=== PATIENT | male | born 1990 | race Caucasian/White ===

== ENCOUNTER 2017-03-30 08:38 | Emergency (ER) | payer MEDICAID ==
[2017-03-30 08:46] VITALS: TEMP 97
[2017-03-30] MEDS ORDERED: SODIUM CHLORIDE 0.9% 1,000 ML IV STA (08:58)
[2017-03-30 09:26] LABS: Basophils % (A) 0 %; HDW 2.43
[2017-03-30 09:31] LABS: CH 33.5; CHCM 35.1; Eosinophils # (A) 0.1 k/uL (0-0.7); Eosinophils % (A) 1 %; HCT 55.9 % (39.0-53.0); HGB 18.4 gm/dL (13.0-17.5); Luc # (Auto) 0.06; Luc % (Auto) 1; Lymphocytes # (A) 2.2 k/uL (1.0-4.8); Lymphocytes % (A) 22 %; MCH 31.5 pg (25.0-35.0); MCHC 32.9 g/dL (31.0-37.0); MCV 95.9 fL (80.0-100.0); Monocytes # (A) 0.4 k/uL (0-1.0); Monocytes % (A) 4 %; Neutrophils # (A) 7.3 k/uL (1.3-7.7); Neutrophils % (A) 73 %; RBC 5.83 m/uL (4.30-5.90); RDW 14.1 % (11.5-15.5); WBC 9.9 k/uL (3.8-10.6); WBC (Perox) 10.83
[2017-03-30 09:33] LABS: Appearance,Urine Clear (Clear); Bilirubin,Urine Negative (Negative); Glucose,Urine (UA) Negative (Negative); Ketones,Urine Negative (Negative); Leukocyte Esterase,Urine Negative (Negative); Mucus,Urine Rare /hpf; Nitrite,Urine Negative (Negative); Particle Count 3036; Protein,Urine 1+ (Negative); RBC,Urine <1 /hpf (0-5); Specific Gravity,Urine 1.021 (1.001-1.035); UA Billing (MACRO vs. MICRO) MICRO; Urobilinogen,Urine <2.0 mg/dL (<2.0)
[2017-03-30 09:41] VITALS: RESP 16
[2017-03-30 09:41] LABS: ALT 81 U/L (21-72); AST 44 U/L (17-59); Alkaline Phosphatase 83 U/L (38-126); Anion Gap 13 mmol/L; Blood Urea Nitrogen 14 mg/dL (9-20); Calcium 9.7 mg/dL (8.4-10.2); Carbon Dioxide 26 mmol/L (22-30); Chloride 103 mmol/L (98-107); Glucose 145 mg/dL (74-99); Non-African American GFR(MDRD) >60 (>60 ml/min/1.73 sqM); Potassium 4.5 mmol/L (3.5-5.1); Sodium 142 mmol/L (137-145); Total Bilirubin 1.6 mg/dL (0.2-1.3)
--- NOTE | 2017-03-30 09:48 | ED ---
General Adult HPI - General Chief complaint: Recheck/Abnormal Lab/Rx Stated complaint: Allergic Reaction-cannot see, dizzy Time Seen by Provider: 03/30/17 08:51 Source: patient, RN notes reviewed Mode of arrival: ambulatory Limitations: no limitations - History of Present Illness Initial comments: 26-year-old male presents to the emergency Department chief complaint of feeling like his heart is racing. Patient states he took 2 OxyContin a new diet pill today and he was only supposed to take 1 and now he feels as if his heart is pounding. He just feels very anxious and nervous. Patient states these were the side effects. He was concerned because he just does not feel right. Patient denies any pain with this. Patient states sometimes his heart seems to be so hard he does have mild shortness of breath. Patient was concerned due to his symptoms so he thought that he should be evaluated. Patient denies any other symptoms at this time.Patient denies any recent fever, chills, chest pain, back pain, abdominal pain, nausea vomiting, numbness or tingling, dysuria or hematuria, constipation or diarrhea, headaches or visual changes, or any other current symptoms. - Related Data Home Medications Medication Instructions Recorded Confirmed Kayli Leanz 2 cap PO ONCE 03/30/17 03/30/17 diphenhydrAMINE [Benadryl] 50 mg PO ONCE PRN 03/30/17 03/30/17 Allergies Allergy/AdvReac Type Severity Reaction Status Date / Time No Known Allergies Allergy Verified 03/30/17 09:14 Review of Systems ROS Statement: Those systems with pertinent positive or pertinent negative responses have been documented in the HPI. ROS Other: All systems not noted in ROS Statement are negative. Past Medical History Additional Past Medical History / Comment(s): kidney stones History of Any Multi-Drug Resistant Organisms: None Reported Past Surgical History: No Surgical Hx Reported Past Psychological History: No Psychological Hx Reported Smoking Status: Current every day smoker Past Alcohol Use History: None Reported Past Drug Use History: None Reported General Exam - General Exam Comments Initial Comments: General: The patient is awake and alert, in no distress, and does not appear acutely ill. Eye: Pupils are equal, round and reactive to light, extra-ocular movements are intact; there is normal conjunctiva bilaterally. No signs of icterus. Ears, nose, mouth and throat: There are moist mucous membranes and no oral lesions. Neck: The neck is supple, there is no tenderness. Cardiovascular: There is a regular rate and rhythm. No murmur, rub or gallop is appreciated. Respiratory: Lungs are clear to auscultation, respirations are non-labored, breath sounds are equal. No wheezes, stridor, rales, or rhonchi. Gastrointestinal: Soft, non-distended, non-tender abdomen without masses or organomegaly noted. There is no rebound or guarding present. No CVA tenderness. Bowel sounds are unremarkable. Back: There is no tenderness to palpation in the midline. There is no obvious deformity. No rashes noted. Musculoskeletal: Normal ROM, no tenderness, There is no pedal edema. There is no calf tenderness or swelling. Sensation intact. Pulses equal bilaterally 2+. Neurological: CN II-XII intact, There are no obvious motor or sensory deficits. Coordination appears grossly intact. Speech is normal. Skin: Skin is warm and dry and no rashes or lesions are noted. Psychiatric: Cooperative, appropriate mood & affect, normal judgment. Limitations: no limitations Course Vital Signs 03/30/17 03/30/17 08:43 09:40 Temperature 97.0 F L Pulse Rate 103 H 88 Respiratory 20 16 Rate Blood Pressure 139/87 147/87 O2 Sat by Pulse 98 99 Oximetry EKG Findings - EKG Comments: EKG Findings:: normal sinus rhythm 94 bpm, normal axis, no atopy, no S-T depressions or elevations, Medical Decision Making - Medical Decision Making 26-year-old male presents emergency Department chief complaint of taking too much rock saline. At this time patient has been on a heart monitor with no issues. At this time EKG shows normal lipase. This time blood work was reviewed that does show some dehydration we did give the patient fluids. This time we did discuss not taking medication. We discussed follow-up return parameters. Patient stated the Michael on questions have been answered. Discharged home. - Lab Data Result diagrams: 03/30/17 09:09 03/30/17 09:09 Lab Results 03/30/17 03/30/17 03/30/17 Range/Units 09:09 09:09 09:09 WBC 9.9 (3.8-10.6) k/uL RBC 5.83 (4.30-5.90) m/uL Hgb 18.4 H (13.0-17.5) gm/dL Hct 55.9 H (39.0-53.0) % MCV 95.9 (80.0-100.0) fL MCH 31.5 (25.0-35.0) pg MCHC 32.9 (31.0-37.0) g/dL RDW 14.1 (11.5-15.5) % Plt Count 255 (150-450) k/uL Neutrophils % 73 % Lymphocytes % 22 % Monocytes % 4 % Eosinophils % 1 % Basophils % 0 % Neutrophils # 7.3 (1.3-7.7) k/uL Lymphocytes # 2.2 (1.0-4.8) k/uL Monocytes # 0.4 (0-1.0) k/uL Eosinophils # 0.1 (0-0.7) k/uL Basophils # 0.0 (0-0.2) k/uL Sodium 142 (137-145) mmol/L Potassium 4.5 (3.5-5.1) mmol/L Chloride 103 (98-107) mmol/L Carbon Dioxide 26 (22-30) mmol/L Anion Gap 13 mmol/L BUN 14 (9-20) mg/dL Creatinine 0.95 (0.66-1.25) mg/dL Est GFR (MDRD) Af Amer >60 (>60 ml/min/1.73 sqM) Est GFR (MDRD) Non-Af >60 (>60 ml/min/1.73 sqM) Glucose 145 H (74-99) mg/dL Calcium 9.7 (8.4-10.2) mg/dL Total Bilirubin 1.6 H (0.2-1.3) mg/dL AST 44 (17-59) U/L ALT 81 H (21-72) U/L Alkaline Phosphatase 83 (38-126) U/L Total Protein 8.0 (6.3-8.2) g/dL Albumin 5.0 (3.5-5.0) g/dL Urine Color Yellow Urine Appearance Clear (Clear) Urine pH 6.0 (5.0-8.0) Ur Specific [place] 1.021 (1.001-1.035) Urine Protein 1+ H (Negative) Urine Glucose (UA) Negative (Negative) Urine Ketones Negative (Negative) Urine Blood Negative (Negative) Urine Nitrite Negative (Negative) Urine Bilirubin Negative (Negative) Urine Urobilinogen <2.0 (<2.0) mg/dL Ur Leukocyte Esterase Negative (Negative) Urine RBC <1 (0-5) /hpf Urine Mucus Rare H (None) /hpf - Radiology Data Radiology results: report reviewed, image reviewed Disposition Clinical Impression: Reaction, drug, adverse Disposition: HOME SELF-CARE Condition: Stable Instructions: Adverse Drug Reaction (ED) Additional Instructions: Please use medication as discussed. Please follow up with family doctor if symptoms have not improved over the next two days. Please return to the emergency room if your symptoms increase or worsen or for any other concerns. Referrals: Anthony Rajput MD [Primary Care Provider] - 1-2 days Time of Disposition: 09:53
[2017-03-30 10:09] VITALS: BP 132/80; PULSE 81
== END 2017-03-30 10:09 | disposition home or self-care (01) ==
LOC: EC 08:38
DX: R00.2 Palpitations (principal); T40.2X5A Adverse effect of other opioids, initial encounter; R42 Dizziness and giddiness; R06.02 Shortness of breath; F17.200 Nicotine dependence, unspecified, uncomplicated; Z79.899 Other long term (current) drug therapy
CPT/HCPCS: 36415; 80053; 81001; 85025; 93005; 96360; 99284

== ENCOUNTER 2018-03-15 20:31 | Emergency (ER) | payer MEDICAID, OTHER ==
[2018-03-15 20:42] VITALS: BP 162/92; PULSE 110; RESP 18; TEMP 99
[2018-03-15] MEDS ORDERED: SODIUM CHLORIDE 0.9% 1,000 ML IV STA (22:05)
[2018-03-15 22:45] LABS: Appearance,Urine Clear (Clear); Bilirubin,Urine Negative (Negative); Blood,Urine Negative (Negative); Color,Urine Light Yellow; Glucose,Urine (UA) Negative (Negative); Ketones,Urine Negative (Negative); Leukocyte Esterase,Urine Negative (Negative); Nitrite,Urine Negative (Negative); Protein,Urine Negative (Negative); Urobilinogen,Urine <2.0 mg/dL (<2.0)
[2018-03-15 22:47] LABS: Basophils # (A) 0.1 k/uL (0-0.2); Basophils % (A) 0 %; Eosinophils # (A) 0.3 k/uL (0-0.7); Eosinophils % (A) 2 %; HCT 49.3 % (39.0-53.0); HGB 17.2 gm/dL (13.0-17.5); Lymphocytes # (A) 2.9 k/uL (1.0-4.8); Lymphocytes % (A) 21 %; MCH 31.1 pg (25.0-35.0); MCHC 34.9 g/dL (31.0-37.0); MCV 89.2 fL (80.0-100.0); Monocytes # (A) 0.6 k/uL (0-1.0); Monocytes % (A) 5 %; Neutrophils # (A) 9.9 k/uL (1.3-7.7); Neutrophils % (A) 71 %; Platelet Count 231 k/uL (150-450); RBC 5.53 m/uL (4.30-5.90); RDW 12.8 % (11.5-15.5); WBC 13.9 k/uL (3.8-10.6)
[2018-03-15 22:54] LABS: Sodium 138 mmol/L (137-145)
[2018-03-15 22:57] LABS: Albumin 4.4 g/dL (3.5-5.0); Anion Gap 10 mmol/L; Blood Urea Nitrogen 18 mg/dL (9-20); Calcium 9.7 mg/dL (8.4-10.2); Carbon Dioxide 24 mmol/L (22-30); Chloride 104 mmol/L (98-107); D-Dimer 0.19 mg/L FEU (<0.60); Glucose 109 mg/dL (74-99); Partial Thromboplastin Time 25.8 sec (22.0-30.0); Prothrombin Time 10.1 sec (9.0-12.0); Total Bilirubin 0.7 mg/dL (0.2-1.3); Total Protein 7.4 g/dL (6.3-8.2)
[2018-03-15 22:59] LABS: Creatine Kinase 209 U/L (55-170)
--- NOTE | 2018-03-15 23:06 | XR ---
EXAMINATION TYPE: XR chest 2V DATE OF EXAM: 03/15/2018 COMPARISON: 11/07/2014 HISTORY: Syncope TECHNIQUE: Frontal and lateral views of the chest are obtained. FINDINGS: Heart and mediastinum are normal. Lungs are clear. Diaphragm is normal. Bony thorax appear s normal. IMPRESSION: Normal chest. There is improved inspiration and clearing of right lower lobe pneumonia c ompared to old exam.
--- NOTE | 2018-03-15 23:08 | ED ---
General Adult HPI - General Chief complaint: Recheck/Abnormal Lab/Rx Stated complaint: Hypertension Time Seen by Provider: 03/15/18 21:34 Source: patient, EMS Mode of arrival: EMS Limitations: no limitations - History of Present Illness Initial comments: Phillip is a 27-year-old male who presents the emergency department for evaluation of generalized malaise and not feeling well. Patient reports that he was in his usual state of health throughout the day but this evening he began to feel unwell. He felt somewhat lightheaded, felt like he was about to pass out. He reports that he stood and his vision became black. He reports vague palpitations and shortness of breath. Patient reports that he has had episodes similar to this in the past where his vision blackens upon standing. However this was worse than usual. Patient reports that he was home alone at the time so he decided to call 911 for transfer to the hospital. significant other arrived at bedside. She reports that she was out of the home spinning evening with her female friends when she received a call from Phillip stating that he felt like he was going to pass out so he called 911. She reports that he is otherwise healthy and confirms that he doesn't have any cardiopulmonary history or any history of drug or alcohol abuse. - Related Data Home Medications Medication Instructions Recorded Confirmed Acetaminophen Tab [Tylenol Tab] 650 mg PO Q4H PRN 03/15/18 03/15/18 Allergies Allergy/AdvReac Type Severity Reaction Status Date / Time No Known Allergies Allergy Verified 03/15/18 20:50 Review of Systems ROS Statement: Those systems with pertinent positive or pertinent negative responses have been documented in the HPI. ROS Other: All systems not noted in ROS Statement are negative. Past Medical History Additional Past Medical History / Comment(s): kidney stones History of Any Multi-Drug Resistant Organisms: None Reported Past Surgical History: No Surgical Hx Reported Past Psychological History: No Psychological Hx Reported Smoking Status: Current every day smoker Past Alcohol Use History: None Reported Past Drug Use History: None Reported General Exam - General Exam Comments Initial Comments: Physical Exam GENERAL: Patient is resting in bed, eyes closed, appears to be in no acute distress. Patient is well-developed and well-nourished. Patient is nontoxic and well- hydrated and is in no distress. HENT: Normocephalic, Atraumatic. EYES: PERRL, EOMI PULMONARY: Unlabored respirations. No audible rales rhonchi or wheezing was noted. CARDIOVASCULAR: There is a regular rate and rhythm without any murmurs gallops or rubs. ABDOMEN: Soft and nontender with normal bowel sounds. SKIN: Skin is clear with no lesions or rashes and otherwise unremarkable. : Deferred NEUROLOGIC: Patient is alert and oriented x3. Moving all extremities spontaneously MUSCULOSKELETAL: Normal extremities with adequate strength and full range of motion. No lower extremity swelling or edema. No calf tenderness. PSYCHIATRIC: Normal psychiatric evaluation. Limitations: no limitations Limitations: no limitations Course Vital Signs 03/15/18 20:38 Temperature 99.0 F Pulse Rate 110 H Respiratory 18 Rate Blood Pressure 162/92 O2 Sat by Pulse 97 Oximetry EKG Findings - EKG Comments: EKG Findings:: EKG obtained at 10:13 PM, rate is 102, rhythm is sinus, there is normal axis, normal intervals, LA 142, QRS 80, QTC 435. There is no acute ST elevations or depressions no evidence of acute ischemia or infarction or arrhythmia. Medical Decision Making - Medical Decision Making The patient was seen and evaluated, history is obtained from the patient Patient reports subjective lightheadedness and feeling like he was about to pass out. Patient reports he does not feel well. He is very vague. states that he stealing confused. Not very cooperative with exam or evaluation laying with his eyes closed. 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 When I engaged the patient in conversation about recent professional MMA fight the patient became much more awake and interactive. We're able to maintain a five-minute conversation about controversy regarding recent fights that occurred over the previous weekend. After witnessing this conversation the patient's significant other at bedside stated "wow it seems [id number] better now" at which time the patient then closed his eyes and curled up in bed stating that he still didn't feel right After observing the patient and significant other at bedside I do feel there may be secondary gain motivation for the patient coming to the ER. His complaints are very vague and he cannot elaborate on them. When asked specifics about his complaints he repeatedly states that he doesn't know. However I will do a full workup including labs and EKG. EKG was unremarkable Labs with mild leukocytosis no other abnormalities Results were discussed with the patient reports feeling much better after IV fluids. At this time the patient is agreeable to plan for discharge home. I offered the patient and his significant other a work note as they were in the ER very late tonight. 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 All questions pertaining care were answered best my ability patient was discharged home in stable condition. - Lab Data Result diagrams: 03/15/18 22:20 03/15/18 22:20 Lab Results 03/15/18 03/15/18 03/15/18 Range/Units 22:00 22:20 22:20 WBC 13.9 H (3.8-10.6) k/uL RBC 5.53 (4.30-5.90) m/uL Hgb 17.2 (13.0-17.5) gm/dL Hct 49.3 (39.0-53.0) % MCV 89.2 (80.0-100.0) fL MCH 31.1 (25.0-35.0) pg MCHC 34.9 (31.0-37.0) g/dL RDW 12.8 (11.5-15.5) % Plt Count 231 (150-450) k/uL Neutrophils % 71 % Lymphocytes % 21 % Monocytes % 5 % Eosinophils % 2 % Basophils % 0 % Neutrophils # 9.9 H (1.3-7.7) k/uL Lymphocytes # 2.9 (1.0-4.8) k/uL Monocytes # 0.6 (0-1.0) k/uL Eosinophils # 0.3 (0-0.7) k/uL Basophils # 0.1 (0-0.2) k/uL PT (9.0-12.0) sec INR (<1.2) APTT (22.0-30.0) sec D-Dimer (<0.60) mg/L FEU Sodium (137-145) mmol/L Potassium (3.5-5.1) mmol/L Chloride (98-107) mmol/L Carbon Dioxide (22-30) mmol/L Anion Gap mmol/L BUN (9-20) mg/dL Creatinine (0.66-1.25) mg/dL Est GFR (CKD-EPI)AfAm (>60 ml/min/1.73 sqM) Est GFR (CKD-EPI)NonAf (>60 ml/min/1.73 sqM) Glucose (74-99) mg/dL Calcium (8.4-10.2) mg/dL Total Bilirubin (0.2-1.3) mg/dL AST (17-59) U/L ALT (21-72) U/L Alkaline Phosphatase (38-126) U/L Total Creatine Kinase 209 H (55-170) U/L CK-MB (CK-2) 1.1 (0.0-2.4) ng/mL CK-MB (CK-2) Rel Index 0.5 Troponin I <0.012 (0.000-0.034) ng/mL Total Protein (6.3-8.2) g/dL Albumin (3.5-5.0) g/dL Urine Color Light Yellow Urine Appearance Clear (Clear) Urine pH 6.0 (5.0-8.0) Ur Specific [place] 1.010 (1.001-1.035) Urine Protein Negative (Negative) Urine Glucose (UA) Negative (Negative) Urine Ketones Negative (Negative) Urine Blood Negative (Negative) Urine Nitrite Negative (Negative) Urine Bilirubin Negative (Negative) Urine Urobilinogen <2.0 (<2.0) mg/dL Ur Leukocyte Esterase Negative (Negative) 03/15/18 03/15/18 Range/Units 22:20 22:20 WBC (3.8-10.6) k/uL RBC (4.30-5.90) m/uL Hgb (13.0-17.5) gm/dL Hct (39.0-53.0) % MCV (80.0-100.0) fL MCH (25.0-35.0) pg MCHC (31.0-37.0) g/dL RDW (11.5-15.5) % Plt Count (150-450) k/uL Neutrophils % % Lymphocytes % % Monocytes % % Eosinophils % % Basophils % % Neutrophils # (1.3-7.7) k/uL Lymphocytes # (1.0-4.8) k/uL Monocytes # (0-1.0) k/uL Eosinophils # (0-0.7) k/uL Basophils # (0-0.2) k/uL PT 10.1 (9.0-12.0) sec INR 1.0 (<1.2) APTT 25.8 (22.0-30.0) sec D-Dimer 0.19 (<0.60) mg/L FEU Sodium 138 (137-145) mmol/L Potassium 4.6 (3.5-5.1) mmol/L Chloride 104 (98-107) mmol/L Carbon Dioxide 24 (22-30) mmol/L Anion Gap 10 mmol/L BUN 18 (9-20) mg/dL Creatinine 0.82 (0.66-1.25) mg/dL Est GFR (CKD-EPI)AfAm >90 (>60 ml/min/1.73 sqM) Est GFR (CKD-EPI)NonAf >90 (>60 ml/min/1.73 sqM) Glucose 109 H (74-99) mg/dL Calcium 9.7 (8.4-10.2) mg/dL Total Bilirubin 0.7 (0.2-1.3) mg/dL AST 52 (17-59) U/L ALT 110 H (21-72) U/L Alkaline Phosphatase 60 (38-126) U/L Total Creatine Kinase (55-170) U/L CK-MB (CK-2) (0.0-2.4) ng/mL CK-MB (CK-2) Rel Index Troponin I (0.000-0.034) ng/mL Total Protein 7.4 (6.3-8.2) g/dL Albumin 4.4 (3.5-5.0) g/dL Urine Color Urine Appearance (Clear) Urine pH (5.0-8.0) Ur Specific [place] (1.001-1.035) Urine Protein (Negative) Urine Glucose (UA) (Negative) Urine Ketones (Negative) Urine Blood (Negative) Urine Nitrite (Negative) Urine Bilirubin (Negative) Urine Urobilinogen (<2.0) mg/dL Ur Leukocyte Esterase (Negative) Disposition Clinical Impression: Near syncope, Hypertension, Tobacco abuse Disposition: HOME SELF-CARE Condition: Good Instructions: Heart Healthy Diet (ED), Syncope (DC), Hypertension (ED), Lightheadedness (ED) Is patient prescribed a controlled substance at d/c from ED?: No Referrals: None,Stated [Primary Care Provider] - 1-2 days
[2018-03-15 23:11] LABS: Creatine Kinase MB 1.1 ng/mL (0.0-2.4); Troponin I <0.012 ng/mL (0.000-0.034)
[2018-03-15 23:12] LABS: ALT 110 U/L (21-72); AST 52 U/L (17-59); Alkaline Phosphatase 60 U/L (38-126); Potassium 4.6 mmol/L (3.5-5.1)
--- NOTE | 2018-03-16 07:19 | CDI ---
Documentation Clarification OP Dear Danielle Sesay P, DO Please do addendum to ED report that provides Need ER H &P,Physical Exam Thank you, Riccardo Patrick Suspect Artist If you have any questions, please contact Poultry Hatchery Supervisor at [phone] [facility]
== END 2018-03-15 23:55 | disposition home or self-care (01) ==
LOC: EC 20:31
DX: I10 Essential (primary) hypertension (principal); R55 Syncope and collapse; Z72.0 Tobacco use; D72.829 Elevated white blood cell count, unspecified
CPT/HCPCS: 36415; 71046; 80053; 81003; 82550; 82553; 84484; 85025; 85379; 85610; 85730; 96360; 99284

== ENCOUNTER 2020-01-11 06:35 | Emergency (ER) | payer OTHER ==
[2020-01-11] MEDS ORDERED: LORazepam 2 MG/ML INJ IV STA (06:38)
[2020-01-11] MEDS ORDERED: SODIUM CHLORIDE 0.9% 500 ML 500 ML IV ONE (06:38)
[2020-01-11 06:40] VITALS: TEMP 97.8
--- NOTE | 2020-01-11 06:43 | ED ---
Anxiety HPI - General Stated Complaint: Anxiety Time Seen by Provider: 01/11/20 06:37 - History of Present Illness Initial Comments: 29yo male presenting for anxiety, patient states that this morning he woke up and he felt like his arm fell from the ceiling, Denies pain, numbness, has difficulty describing the symptoms. Patient states it felt like he slelpt on it wrong. He states he then became very anxious, which has happened in the past as he struggles with anxiety and staes he has been seen here in the past for it. He states he felt "out of body" began to panic. He states that he felt like his thoughts were a "million miles a minute". He states the took his pulse at that time and felt it pounding. Patient states he felt like he was going to in that moment, became lightheaded, denied sensation that room was spinning and called EMS. Pt denies SOB, chest pain, nausea, vomiting, abdominal or back pain Denies headache, dizziness, vision loss. Denies weakness of UE or LE. Patient denies loss of sensation of the UE or LE. Denies hx of cancer, hemoptysis, leg swelling recent surgeries or injuries, denies exogenous hormone use, personal or family history of DVT/PE/AK. Patient has no additional complaints. He appears nontoxic, on arrival. BP elevated. - Related Data Home Medications: Home Medications Medication Instructions Recorded Confirmed No Known Home Medications 01/11/20 01/11/20 Allergies/Adverse Reactions: Allergies Allergy/AdvReac Type Severity Reaction Status Date / Time No Known Allergies Allergy Verified 01/11/20 07:20 Review of Systems ROS Statement: Those systems with pertinent positive or pertinent negative responses have been documented in the HPI. ROS Other: All systems not noted in ROS Statement are negative. Past Medical History Additional Past Medical History / Comment(s): kidney stones History of Any Multi-Drug Resistant Organisms: None Reported Past Surgical History: No Surgical Hx Reported Past Psychological History: No Psychological Hx Reported Past Alcohol Use History: None Reported Past Drug Use History: None Reported General Exam - General Exam Comments Initial Comments: General: The patient is awake and alert, in no distress Eye: +3 mm pupils are equal, round and reactive to light, extra-ocular movements are intact. No nystagmus. There is normal conjunctiva bilaterally. No signs of icterus. Ears, nose, mouth and throat: There are moist mucous membranes and no oral lesions. Neck: The neck is supple, there is no tenderness or JVD. Cardiovascular: There is a regular rate and rhythm. No murmur, rub or gallop is appreciated. Respiratory: Lungs are clear to auscultation, respirations are non-labored, breath sounds are equal. No wheezes, stridor, rales, or rhonchi. Gastrointestinal: Soft, non-distended, non-tender abdomen without masses or organomegaly noted. There is no rebound or guarding present Musculoskeletal: Normal ROM, no tenderness. Strength 5/5. Sensation intact. Radial pulses equal bilaterally 2+. Neurological: A&O x 3. CN II-XII intact grossly, There are no obvious motor or sensory deficits. Coordination appears grossly intact. Speech is normal. Skin: Skin is warm and dry and no rashes or lesions are noted. NO LE edema. Psychiatric: Cooperative, appropriate mood & affect, normal judgment. Course Vital Signs 01/11/20 01/11/20 01/11/20 06:37 07:36 07:49 Temperature 97.8 F 97.8 F Pulse Rate 96 93 93 Respiratory 16 18 18 Rate Blood Pressure 145/97 125/76 125/76 O2 Sat by Pulse 97 97 97 Oximetry Medical Decision Making - Medical Decision Making 29-year-old male presented for chief complaint of anxiety. Patient states he feels very anxious. He states that he thought he was going to . Patient states that he struggles with anxiety. Patient states that he had an out of body experience like his arm was not his own. Patient denies CP or SOB. Patient labs stable. EKG no acute findings. Patient BP normalized without antihypertensives normalize with Ativan and dark, calm room. Patient denies current symptoms. Heart sounds WNL, lungs clear, with normal CXR> Patietn case discussed with Dr. Jarvis who is agreeable to discharge. Reviewed EKG. - Lab Data Result diagrams: 01/11/20 06:47 01/11/20 06:47 Lab Results 01/11/20 01/11/20 01/11/20 Range/Units 06:47 06:47 06:47 WBC 10.4 (3.8-10.6) k/uL RBC 5.33 (4.30-5.90) m/uL Hgb 16.5 (13.0-17.5) gm/dL Hct 49.6 (39.0-53.0) % MCV 92.9 (80.0-100.0) fL MCH 31.0 (25.0-35.0) pg MCHC 33.3 (31.0-37.0) g/dL RDW 12.9 (11.5-15.5) % Plt Count 227 (150-450) k/uL Neutrophils % 52 % Lymphocytes % 37 % Monocytes % 5 % Eosinophils % 3 % Basophils % 1 % Neutrophils # 5.4 (1.3-7.7) k/uL Lymphocytes # 3.8 (1.0-4.8) k/uL Monocytes # 0.6 (0-1.0) k/uL Eosinophils # 0.3 (0-0.7) k/uL Basophils # 0.1 (0-0.2) k/uL Sodium 137 (137-145) mmol/L Potassium 3.9 (3.5-5.1) mmol/L Chloride 107 (98-107) mmol/L Carbon Dioxide 23 (22-30) mmol/L Anion Gap 7 mmol/L BUN 18 (9-20) mg/dL Creatinine 0.78 (0.66-1.25) mg/dL Est GFR (CKD-EPI)AfAm >90 (>60 ml/min/1.73 sqM) Est GFR (CKD-EPI)NonAf >90 (>60 ml/min/1.73 sqM) Glucose 99 (74-99) mg/dL Calcium 8.8 (8.4-10.2) mg/dL Total Bilirubin 1.1 (0.2-1.3) mg/dL AST 34 (17-59) U/L ALT 53 H (4-49) U/L Alkaline Phosphatase 62 (38-126) U/L Troponin I <0.012 (0.000-0.034) ng/mL Total Protein 6.4 (6.3-8.2) g/dL Albumin 4.0 (3.5-5.0) g/dL - EKG Data EKG Comments: Ventricular rate 97 bpm, IL interval 154 ms, QR buddhism 84 ms, QT/QTC 342/434. This appears to be normal sinus. There is no ST elevation or depression. No delta wave. Disposition Clinical Impression: Anxiety, Elevated blood pressure reading Disposition: HOME SELF-CARE Condition: Good Instructions (If sedation given, give patient instructions): Generalized Anxiety Disorder (ED) Additional Instructions: Please use medication as discussed. Please follow-up with family doctor in the next 2 days. Please return to emergency room if the symptoms increase or worsen or for any other concerns. Is patient prescribed a controlled substance at d/c from ED?: No Referrals: None,Stated [Primary Care Provider] - 1-2 days [facility] [NON-[facility]FF] - 1-2 days Time of Disposition: 07:39
[2020-01-11 06:57] LABS: Basophils # (A) 0.1 k/uL (0-0.2); Basophils % (A) 1 %; Eosinophils # (A) 0.3 k/uL (0-0.7); Eosinophils % (A) 3 %; HCT 49.6 % (39.0-53.0); HGB 16.5 gm/dL (13.0-17.5); Lymphocytes # (A) 3.8 k/uL (1.0-4.8); Lymphocytes % (A) 37 %; MCHC 33.3 g/dL (31.0-37.0); MCV 92.9 fL (80.0-100.0); Mean Platelet Volume 8.4; Monocytes # (A) 0.6 k/uL (0-1.0); Monocytes % (A) 5 %; Neutrophils # (A) 5.4 k/uL (1.3-7.7); Neutrophils % (A) 52 %; Platelet Count 227 k/uL (150-450); RBC 5.33 m/uL (4.30-5.90); RDW 12.9 % (11.5-15.5); WBC 10.4 k/uL (3.8-10.6)
--- NOTE | 2020-01-11 06:59 | XR ---
EXAMINATION TYPE: XR chest 2V DATE OF EXAM: 01/11/2020 COMPARISON: Chest x-ray March 15, 2018. HISTORY: Hypertension. TECHNIQUE: Frontal and lateral views of the chest are obtained. FINDINGS: There is no new suspicious focal air space opacity, pleural effusion, or pneumothorax seen bilaterally. The cardiac silhouette size remains within normal limits. The osseous structures are intact. IMPRESSION: No acute cardiopulmonary process. No significant change from prior.
[2020-01-11 07:04] LABS: ALT 53 U/L (4-49); AST 34 U/L (17-59); African American GFR (CKD) >90 (>60 ml/min/1.73 sqM); Alkaline Phosphatase 62 U/L (38-126); Anion Gap 7 mmol/L; Blood Urea Nitrogen 18 mg/dL (9-20); Calcium 8.8 mg/dL (8.4-10.2); Carbon Dioxide 23 mmol/L (22-30); Chloride 107 mmol/L (98-107); Glucose 99 mg/dL (74-99); Non-African American GFR(CKD) >90 (>60 ml/min/1.73 sqM); Potassium 3.9 mmol/L (3.5-5.1); Sodium 137 mmol/L (137-145); Total Bilirubin 1.1 mg/dL (0.2-1.3); Total Protein 6.4 g/dL (6.3-8.2)
[2020-01-11 07:37] VITALS: BP 125/76; PULSE 93; RESP 18
== END 2020-01-11 07:52 | disposition home or self-care (01) ==
LOC: EC 06:35
DX: F41.9 Anxiety disorder, unspecified (principal); R03.0 Elevated blood-pressure reading, without diagnosis of hypertension
CPT/HCPCS: 36415; 93005; 80053; 84484; 85025; 71046; 99284; 96374; J2060

== ENCOUNTER 2020-08-04 01:38 | Emergency (ER) | payer OTHER ==
[2020-08-04 01:47] VITALS: RESP 18; TEMP 98.4
[2020-08-04] MEDS ORDERED: SODIUM CHLORIDE 0.9% 1,000 ML IV STA (02:03)
[2020-08-04] MEDS ORDERED: LORazepam 2 MG/ML INJ IV STA (02:03)
[2020-08-04] MEDS ORDERED: LISINOPRIL-HCTZ 10-12.5 MG 1 EACH TAB PO STA (02:03)
--- NOTE | 2020-08-04 02:04 | ED ---
Anxiety HPI - General Chief Complaint: Dizziness Stated Complaint: Anxiety Time Seen by Provider: 08/04/20 01:45 Source: patient, EMS, RN notes reviewed, old records reviewed Mode of arrival: EMS Limitations: no limitations - History of Present Illness Initial Comments: This is a 30-year-old male DF for evaluation patient Dese for evaluation of severe anxiety and elevated blood pressure. Patient will is feeling persistent dizziness. He does have history of high blood pressure. No headache no chest pain or shortness of breath currently no recent change in patient medications no drug or alcohol abuse MD Complaint: anxiety, heart racing -: hour(s) Symptoms: palpitations Place: home Previous History of Same: Yes Severity: mild Quality: constant Provoking factors: none known Improves With: nothing Worsens With: nothing Associated symptoms: palpitations - Related Data Home Medications: Previous Rx's Medication Instructions Recorded Lisinopril [Prinivil] 10 mg PO DAILY #90 tab 08/04/20 Allergies/Adverse Reactions: Allergies Allergy/AdvReac Type Severity Reaction Status Date / Time No Known Allergies Allergy Verified 01/11/20 07:20 Review of Systems ROS Statement: Those systems with pertinent positive or pertinent negative responses have been documented in the HPI. ROS Other: All systems not noted in ROS Statement are negative. Past Medical History Past Medical History: Hypertension Additional Past Medical History / Comment(s): kidney stones History of Any Multi-Drug Resistant Organisms: None Reported Past Surgical History: No Surgical Hx Reported Past Psychological History: No Psychological Hx Reported Smoking Status: Current every day smoker Past Alcohol Use History: Occasional Past Drug Use History: None Reported General Exam Limitations: no limitations General appearance: alert, in no apparent distress Head exam: Present: atraumatic, normocephalic, normal inspection Eye exam: Present: normal appearance, PERRL, EOMI. Absent: scleral icterus, conjunctival injection, periorbital swelling ENT exam: Present: normal exam, mucous membranes moist Neck exam: Present: normal inspection. Absent: tenderness, meningismus, lymphadenopathy Respiratory exam: Present: normal lung sounds bilaterally. Absent: respiratory distress, wheezes, rales, rhonchi, stridor Cardiovascular Exam: Present: regular rate, normal rhythm, normal heart sounds. Absent: systolic murmur, diastolic murmur, rubs, gallop, clicks GI/Abdominal exam: Present: soft, normal bowel sounds. Absent: distended, tenderness, guarding, rebound, rigid Extremities exam: Present: normal inspection, full ROM, normal capillary refill. Absent: tenderness, pedal edema, joint swelling, calf tenderness Back exam: Present: normal inspection Neurological exam: Present: alert, oriented X3, CN II-XII intact Psychiatric exam: Present: normal affect, normal mood Skin exam: Present: warm, dry, intact, normal color. Absent: rash Course Vital Signs 08/04/20 08/04/20 01:41 03:28 Temperature 98.4 F Pulse Rate 99 84 Respiratory 18 18 Rate Blood Pressure 150/83 130/90 O2 Sat by Pulse 100 99 Oximetry - Reevaluation(s) Reevaluation #1: Medical record is reviewed Patient symptoms are improved here in the ER Patient informed results and questions have been answered Patient family feel comfortable for discharge Medical Decision Making - Medical Decision Making 30 male to the ER for severe anxiety and dizziness. No findings here in the ER and can be discharged home anxiety is improved - Lab Data Result diagrams: 08/04/20 02:22 08/04/20 02:22 Lab Results 08/04/20 08/04/20 08/04/20 Range/Units 02:22 02:22 02:22 WBC 9.0 (3.8-10.6) k/uL RBC 5.64 (4.30-5.90) m/uL Hgb 17.8 H (13.0-17.5) gm/dL Hct 51.7 (39.0-53.0) % MCV 91.8 (80.0-100.0) fL MCH 31.6 (25.0-35.0) pg MCHC 34.5 (31.0-37.0) g/dL RDW 12.3 (11.5-15.5) % Plt Count 213 (150-450) k/uL MPV 8.3 Neutrophils % 65 % Lymphocytes % 26 % Monocytes % 5 % Eosinophils % 3 % Basophils % 1 % Neutrophils # 5.8 (1.3-7.7) k/uL Lymphocytes # 2.3 (1.0-4.8) k/uL Monocytes # 0.4 (0-1.0) k/uL Eosinophils # 0.3 (0-0.7) k/uL Basophils # 0.1 (0-0.2) k/uL Sodium 141 (137-145) mmol/L Potassium 4.3 (3.5-5.1) mmol/L Chloride 105 (98-107) mmol/L Carbon Dioxide 25 (22-30) mmol/L Anion Gap 11 mmol/L BUN 21 H (9-20) mg/dL Creatinine 0.88 (0.66-1.25) mg/dL Est GFR (CKD-EPI)AfAm >90 (>60 ml/min/1.73 sqM) Est GFR (CKD-EPI)NonAf >90 (>60 ml/min/1.73 sqM) Glucose 108 H (74-99) mg/dL Calcium 9.4 (8.4-10.2) mg/dL Phosphorus 2.9 (2.5-4.5) mg/dL Magnesium 2.0 (1.6-2.3) mg/dL Total Bilirubin 0.6 (0.2-1.3) mg/dL AST 30 (17-59) U/L ALT 38 (4-49) U/L Alkaline Phosphatase 77 (38-126) U/L Troponin I <0.012 (0.000-0.034) ng/mL Total Protein 7.4 (6.3-8.2) g/dL Albumin 4.7 (3.5-5.0) g/dL TSH 0.660 (0.465-4.680) mIU/L - EKG Data -: EKG Interpreted by Me (EKG is sinus a 95 UT 142 QRS 84 QTc 427) Disposition Clinical Impression: Hypertension, Anxiety Disposition: HOME SELF-CARE Condition: Good Instructions (If sedation given, give patient instructions): Hypertension (ED) Prescriptions: Lisinopril [Prinivil] 10 mg PO DAILY #90 tab Is patient prescribed a controlled substance at d/c from ED?: No Referrals: None,Stated [Primary Care Provider] - 1-2 days
[2020-08-04 02:33] LABS: Basophils # (A) 0.1 k/uL (0-0.2); Basophils % (A) 1 %; Eosinophils # (A) 0.3 k/uL (0-0.7); Eosinophils % (A) 3 %; HCT 51.7 % (39.0-53.0); HGB 17.8 gm/dL (13.0-17.5); Lymphocytes # (A) 2.3 k/uL (1.0-4.8); Lymphocytes % (A) 26 %; MCH 31.6 pg (25.0-35.0); MCHC 34.5 g/dL (31.0-37.0); MCV 91.8 fL (80.0-100.0); Mean Platelet Volume 8.3; Monocytes # (A) 0.4 k/uL (0-1.0); Monocytes % (A) 5 %; Neutrophils # (A) 5.8 k/uL (1.3-7.7); Neutrophils % (A) 65 %; Platelet Count 213 k/uL (150-450); RBC 5.64 m/uL (4.30-5.90); RDW 12.3 % (11.5-15.5)
[2020-08-04 02:43] LABS: ALT 38 U/L (4-49); AST 30 U/L (17-59); African American GFR (CKD) >90 (>60 ml/min/1.73 sqM); Albumin 4.7 g/dL (3.5-5.0); Alkaline Phosphatase 77 U/L (38-126); Anion Gap 11 mmol/L; Blood Urea Nitrogen 21 mg/dL (9-20); Calcium 9.4 mg/dL (8.4-10.2); Carbon Dioxide 25 mmol/L (22-30); Chloride 105 mmol/L (98-107); Glucose 108 mg/dL (74-99); Non-African American GFR(CKD) >90 (>60 ml/min/1.73 sqM); Phosphorus 2.9 mg/dL (2.5-4.5); Potassium 4.3 mmol/L (3.5-5.1); Sodium 141 mmol/L (137-145); Total Bilirubin 0.6 mg/dL (0.2-1.3); Total Protein 7.4 g/dL (6.3-8.2)
[2020-08-04 03:39] VITALS: BP 130/90; PULSE 84
== END 2020-08-04 03:30 | disposition home or self-care (01) ==
LOC: EC 01:38
DX: F41.9 Anxiety disorder, unspecified (principal); F17.200 Nicotine dependence, unspecified, uncomplicated; I10 Essential (primary) hypertension; Z79.899 Other long term (current) drug therapy
CPT/HCPCS: 36415; 93005; 80053; 83735; 84100; 84443; 84484; 85025; 99285; 96374; 96361; J2060

== ENCOUNTER 2020-09-17 22:48 | Emergency (ER) | payer OTHER ==
[2020-09-17 23:26] VITALS: TEMP 98
--- NOTE | 2020-09-17 23:41 | ED ---
Dizziness HPI - General Chief Complaint: Dizziness Stated Complaint: Chest Pain Time Seen by Provider: 09/17/20 23:30 Source: patient, RN notes reviewed, old records reviewed Mode of arrival: wheelchair Limitations: no limitations - History of Present Illness Initial Comments: This is a 30-year-old male DF for evaluation presents today for evaluation re gards to some chest pain shaking feelings of severe anxiety dizziness he may pass out. Severe burning chest pain. Muscle twitching some back pain. Positive nausea no vomiting no fevers. History of similar. Patient does have history of high blood pressure. Patient does not follow primary care. No recent travel history or sick contacts. MD Complaint: dizziness, other (Chest pain) -: hour(s) Timing: sudden onset Description: lightheadedness, nausea History of Same: Yes History of Trauma: No Severity: moderate Improves With: nothing Worsens With: position, exertion Associated Symptoms: chest pain, diaphoresis, shortness of breath - Related Data Previous Rx's Medication Instructions Recorded Lisinopril [Prinivil] 10 mg PO DAILY #90 tab 08/04/20 Allergies Allergy/AdvReac Type Severity Reaction Status Date / Time No Known Allergies Allergy Verified 09/17/20 23:25 Review of Systems ROS Statement: Those systems with pertinent positive or pertinent negative responses have been documented in the HPI. ROS Other: All systems not noted in ROS Statement are negative. Past Medical History Past Medical History: Hypertension Additional Past Medical History / Comment(s): kidney stones History of Any Multi-Drug Resistant Organisms: None Reported Past Surgical History: No Surgical Hx Reported Past Psychological History: Anxiety Smoking Status: Current every day smoker Past Alcohol Use History: Occasional Past Drug Use History: None Reported General Exam Limitations: no limitations General appearance: alert, in no apparent distress Head exam: Present: atraumatic, normocephalic, normal inspection Eye exam: Present: normal appearance, PERRL, EOMI. Absent: scleral icterus, conjunctival injection, periorbital swelling ENT exam: Present: normal exam, mucous membranes moist Neck exam: Present: normal inspection. Absent: tenderness, meningismus, lymphadenopathy Respiratory exam: Present: normal lung sounds bilaterally. Absent: respiratory distress, wheezes, rales, rhonchi, stridor Cardiovascular Exam: Present: regular rate, normal rhythm, normal heart sounds. Absent: systolic murmur, diastolic murmur, rubs, gallop, clicks GI/Abdominal exam: Present: soft, normal bowel sounds. Absent: distended, tenderness, guarding, rebound, rigid Extremities exam: Present: normal inspection, full ROM, normal capillary refill. Absent: tenderness, pedal edema, joint swelling, calf tenderness Back exam: Present: normal inspection Neurological exam: Present: alert, oriented X3, CN II-XII intact Psychiatric exam: Present: normal affect, normal mood Skin exam: Present: warm, dry, intact, normal color. Absent: rash Course Vital Signs 09/17/20 23:23 Temperature 98.0 F Pulse Rate 89 Respiratory 20 Rate Blood Pressure 138/94 O2 Sat by Pulse 96 Oximetry - Reevaluation(s) Reevaluation #1: 09/18/20 00:14 Medical records reviewed Reevaluation #2: 09/18/20 00:58 Patient relatively patient's manic here in the ER, symptoms improved Reevaluation #3: 09/18/20 00:58 Patient informed results here in the ER questions are answered okay for discharge EKG Findings - EKG Comments: EKG Findings:: EKG shows sinus rhythm 82 MN 146 QRS 82 QTC 427 Medical Decision Making - Medical Decision Making 30 male DF for evaluation patient does have chest pain anxiety. Symptoms are significantly improved here in the ER, patient can be discharged home - Lab Data Result diagrams: 09/18/20 00:01 Lab Results 09/18/20 09/18/20 Range/Units 00:01 00:01 WBC 12.0 H (3.8-10.6) k/uL RBC 5.48 (4.30-5.90) m/uL Hgb 17.9 H (13.0-17.5) gm/dL Hct 49.9 (39.0-53.0) % MCV 91.1 (80.0-100.0) fL MCH 32.7 (25.0-35.0) pg MCHC 35.8 (31.0-37.0) g/dL RDW 12.6 (11.5-15.5) % Plt Count 221 (150-450) k/uL MPV 8.5 Neutrophils % 60 % Lymphocytes % 32 % Monocytes % 5 % Eosinophils % 1 % Basophils % 0 % Neutrophils # 7.2 (1.3-7.7) k/uL Lymphocytes # 3.8 (1.0-4.8) k/uL Monocytes # 0.6 (0-1.0) k/uL Eosinophils # 0.1 (0-0.7) k/uL Basophils # 0.0 (0-0.2) k/uL PT 10.3 (9.0-12.0) sec INR 1.0 (<1.2) APTT 24.8 (22.0-30.0) sec D-Dimer 0.22 (<0.60) mg/L FEU - Radiology Data Radiology results: report reviewed (Chest x-rays negative for acute disease), image reviewed Disposition Clinical Impression: Dehydration, Anxiety, Chest pain Disposition: HOME SELF-CARE Condition: Good Instructions (If sedation given, give patient instructions): Dizziness (ED), Chest Pain (ED) Is patient prescribed a controlled substance at d/c from ED?: No Referrals: None,Stated [Primary Care Provider] - 1-2 days
[2020-09-18] MEDS ORDERED: SODIUM CHLORIDE 0.9% 1,000 ML IV STA (00:11)
[2020-09-18] MEDS ORDERED: LORazepam 2 MG/ML INJ IV STA (00:11)
[2020-09-18] MEDS ORDERED: PANTOPRAZOLE 40 MG/10 ML VIAL IVP STA (00:11)
[2020-09-18] MEDS ORDERED: KETOROLAC 15 MG/ML 1 ML VIAL IVP STA (00:12)
[2020-09-18 00:36] LABS: Basophils % (A) 0 %; Eosinophils # (A) 0.1 k/uL (0-0.7); Eosinophils % (A) 1 %; HCT 49.9 % (39.0-53.0); HGB 17.9 gm/dL (13.0-17.5); Lymphocytes # (A) 3.8 k/uL (1.0-4.8); Lymphocytes % (A) 32 %; MCH 32.7 pg (25.0-35.0); MCHC 35.8 g/dL (31.0-37.0); MCV 91.1 fL (80.0-100.0); Mean Platelet Volume 8.5; Monocytes # (A) 0.6 k/uL (0-1.0); Monocytes % (A) 5 %; Neutrophils # (A) 7.2 k/uL (1.3-7.7); Neutrophils % (A) 60 %; Platelet Count 221 k/uL (150-450); RBC 5.48 m/uL (4.30-5.90); RDW 12.6 % (11.5-15.5)
[2020-09-18 00:52] LABS: D-Dimer 0.22 mg/L FEU (<0.60); Partial Thromboplastin Time 24.8 sec (22.0-30.0); Prothrombin Time 10.3 sec (9.0-12.0)
--- NOTE | 2020-09-18 01:02 | XR ---
EXAM: XR Chest, 2 Views CLINICAL HISTORY: ITS.REASON XR Reason: Weakness TECHNIQUE: Frontal and lateral views of the chest. COMPARISON: 02/11/2020 FINDINGS: Lungs: Unremarkable. No consolidation. Pleural space: Unremarkable. No pneumothorax. Heart: Unremarkable. No cardiomegaly. Mediastinum: Unremarkable. Bones/joints: Unremarkable. IMPRESSION: No acute pulmonary process
[2020-09-18 01:11] LABS: ALT 37 U/L (4-49); AST 30 U/L (17-59); African American GFR (CKD) >90 (>60 ml/min/1.73 sqM); Albumin 4.8 g/dL (3.5-5.0); Alcohol <10 mg/dL; Alkaline Phosphatase 70 U/L (38-126); Anion Gap 11 mmol/L; Blood Urea Nitrogen 22 mg/dL (9-20); Calcium 10.2 mg/dL (8.4-10.2); Carbon Dioxide 24 mmol/L (22-30); Chloride 103 mmol/L (98-107); Creatine Kinase 367 U/L (55-170); Glucose 93 mg/dL (74-99); Lipase 123 U/L (23-300); Non-African American GFR(CKD) >90 (>60 ml/min/1.73 sqM); Phosphorus 4.6 mg/dL (2.5-4.5); Potassium 4.3 mmol/L (3.5-5.1); Sodium 138 mmol/L (137-145); Total Bilirubin 0.7 mg/dL (0.2-1.3); Total Protein 7.5 g/dL (6.3-8.2)
[2020-09-18 02:46] VITALS: BP 143/88; PULSE 92; RESP 16
== END 2020-09-18 02:46 | disposition home or self-care (01) ==
LOC: EC 22:48
DX: F41.9 Anxiety disorder, unspecified (principal); E86.0 Dehydration; R07.9 Chest pain, unspecified; I10 Essential (primary) hypertension; F17.200 Nicotine dependence, unspecified, uncomplicated
CPT/HCPCS: 36415; 93005; 85379; 83880; 80053; 82550; 83690; 83735; 84100; 84484; 85025; 85610; 85730; 71046; 99284; 96374; 96375 ×2; 96361 ×2; G0480; J2060; J1885; C9113; 80320

== ENCOUNTER 2020-12-24 21:47 | Emergency (ER) | payer OTHER ==
[2020-12-24 21:59] VITALS: TEMP 98
[2020-12-24] MEDS ORDERED: SODIUM CHLORIDE 0.9% 1,000 ML IV STA (22:08)
[2020-12-24] MEDS ORDERED: ONDANSETRON 4 MG/2 ML VIAL IVP STA (22:08)
[2020-12-24] MEDS ORDERED: KETOROLAC 15 MG/ML 1 ML VIAL IVP STA (22:08)
[2020-12-24] MEDS ORDERED: HYDROmorphone 0.5 MG/0.5 ML SYRINGE IVP STA (22:08)
[2020-12-24 22:32] LABS: Basophils # (A) 0.1 k/uL (0-0.2); Basophils % (A) 1 %; Eosinophils # (A) 0.4 k/uL (0-0.7); Eosinophils % (A) 4 %; HCT 46.7 % (39.0-53.0); HGB 16.8 gm/dL (13.0-17.5); Lymphocytes # (A) 3.8 k/uL (1.0-4.8); Lymphocytes % (A) 35 %; MCH 33.4 pg (25.0-35.0); MCV 92.6 fL (80.0-100.0); Mean Platelet Volume 8.6; Monocytes # (A) 0.5 k/uL (0-1.0); Monocytes % (A) 5 %; Neutrophils # (A) 5.8 k/uL (1.3-7.7); Neutrophils % (A) 54 %; Platelet Count 236 k/uL (150-450); RBC 5.04 m/uL (4.30-5.90); RDW 12.4 % (11.5-15.5); WBC 10.7 k/uL (3.8-10.6)
[2020-12-24 22:41] LABS: ALT 38 U/L (4-49); AST 40 U/L (17-59); African American GFR (CKD) >90 (>60 ml/min/1.73 sqM); Albumin 4.4 g/dL (3.5-5.0); Alkaline Phosphatase 76 U/L (38-126); Anion Gap 9 mmol/L; Blood Urea Nitrogen 20 mg/dL (9-20); Calcium 9.5 mg/dL (8.4-10.2); Carbon Dioxide 25 mmol/L (22-30); Chloride 104 mmol/L (98-107); Glucose 137 mg/dL (74-99); Lipase 115 U/L (23-300); Non-African American GFR(CKD) >90 (>60 ml/min/1.73 sqM); Sodium 138 mmol/L (137-145); Total Bilirubin 0.4 mg/dL (0.2-1.3); Total Protein 7.1 g/dL (6.3-8.2)
[2020-12-24 22:43] LABS: Appearance,Urine Clear (Clear); Bilirubin,Urine Negative (Negative); Blood,Urine Small (Negative); Color,Urine Yellow; Glucose,Urine (UA) Negative (Negative); Ketones,Urine Negative (Negative); Leukocyte Esterase,Urine Negative (Negative); Mucus,Urine Rare /hpf; Nitrite,Urine Negative (Negative); PH, Urine 5.5 (5.0-8.0); Protein,Urine Negative (Negative); RBC,Urine 1 /hpf (0-5); Specific Gravity,Urine 1.024 (1.001-1.035); Urobilinogen,Urine <2.0 mg/dL (<2.0); WBC,Urine <1 /hpf (0-5)
--- NOTE | 2020-12-24 22:55 | CT ---
EXAMINATION TYPE: CT abdomen pelvis wo con DATE OF EXAM: 12/24/2020 COMPARISON: 04/25/2011 HISTORY: flank pain, hx of stones CT DLP: 1106.4 mGycm Automated exposure control for dose reduction was used. Images were obtained from the diaphragm to the floor the pelvis with no contrast. Lung bases are clear. There is no pleural effusion. Heart size is normal. There is no pericardial eff usion. There is some fatty infiltration of the liver. Spleen is intact. Stomach pancreas gallbladder appear intact. The bile ducts are not dilated. There is no adrenal mass. Kidneys have normal size. There is no hydronephrosis. There is no evidence of a renal calculus. Ureters are not dilated. Appendix is posterior and appears normal. Bladder diste nds smoothly. There is no inguinal hernia. There is no free fluid in the pelvis. There is no evidence of a pelvic mass. There is no mesenteric edema. There is no ascites or free air. There is no sign of a bowel obstructio n. Lumbar vertebra have normal spacing and alignment. Posterior elements are intact. There is no mario mi fracture. The bony pelvis is intact. The hip joints are intact. There is no hip dysplasia. IMPRESSION: Negative CT scan abdomen and pelvis. There is clearing of the right side obstruction compared to old exam. No evidence of urinary tract calculus. Normal appendix.
--- NOTE | 2020-12-24 23:00 | ED ---
Abdominal Pain HPI - General Chief Complaint: Abdominal Pain Stated Complaint: Kidney stones Time Seen by Provider: 12/24/20 22:03 Source: patient Mode of arrival: ambulatory Limitations: no limitations - History of Present Illness Initial Comments: 30-year-old male patient presents to the emergency department today for evaluation of right-sided abdominal pain and right flank pain. Patient does have a history of kidney stones. States this pain started yesterday during a coughing episode he is concerned that there was another stone. Does report blo od in his urine. Denies fever or chills. States he has been nauseated with no vomiting. Denies any history of abdominal surgery. Has seen urology in the past. Patient denies any recent rash, cough, shortness of breath, chest pain, diarrhea, constipation, back pain, numbness, tingling, dizziness, weakness, headache, visual changes, or any other complaints. - Related Data Home Medications Medication Instructions Recorded Confirmed Acetaminophen [Tylenol Arthritis] 1,950 mg PO ONCE PRN 12/24/20 12/24/20 HYDROcodone/APAP 7.5-325MG [[place] 2 tab PO ONCE PRN 12/24/20 12/24/20 7.5-325] Hydrangea Root (Unknown Strength) 1 tab PO DAILY PRN 12/24/20 12/24/20 Kidney Cleanse Supplement 1 dose PO DAILY PRN 12/24/20 12/24/20 Previous Rx's Medication Instructions Recorded Ibuprofen [Motrin] 600 mg PO Q8HR PRN #30 tab 12/24/20 Allergies Allergy/AdvReac Type Severity Reaction Status Date / Time banana peppers Allergy Swelling Uncoded 12/24/20 22:55 Review of Systems ROS Statement: Those systems with pertinent positive or pertinent negative responses have been documented in the HPI. ROS Other: All systems not noted in ROS Statement are negative. Past Medical History Past Medical History: Hypertension Additional Past Medical History / Comment(s): kidney stones History of Any Multi-Drug Resistant Organisms: None Reported Past Surgical History: No Surgical Hx Reported Past Psychological History: Anxiety Smoking Status: Current every day smoker Past Alcohol Use History: Occasional Past Drug Use History: None Reported General Exam Limitations: no limitations General appearance: alert, in no apparent distress, other (This is a well- developed, well-nourished adult male patient in no acute distress. Vital signs upon presentation are temperature 98.0F, pulse 110, respirations 20, blood pressure 148/88, pulse ox 98% on room air.) Eye exam: Present: normal appearance, PERRL, EOMI. Absent: scleral icterus, conjunctival injection, periorbital swelling ENT exam: Present: normal exam, normal oropharynx, mucous membranes moist Respiratory exam: Present: normal lung sounds bilaterally. Absent: respiratory distress, wheezes, rales, rhonchi, stridor Cardiovascular Exam: Present: regular rate, normal rhythm, normal heart sounds. Absent: systolic murmur, diastolic murmur, rubs, gallop, clicks GI/Abdominal exam: Present: soft, normal bowel sounds. Absent: distended, tenderness, guarding, rebound, rigid Back exam: Present: normal inspection, CVA tenderness (R). Absent: CVA tenderness (L) Neurological exam: Present: alert, oriented X3, CN II-XII intact Psychiatric exam: Present: normal affect, normal mood Skin exam: Present: warm, dry, intact, normal color. Absent: rash Course Vital Signs 12/24/20 12/24/20 21:56 23:06 Temperature 98.0 F 98.0 F Pulse Rate 110 H 100 Respiratory 20 18 Rate Blood Pressure 148/88 137/94 O2 Sat by Pulse 98 96 Oximetry Medical Decision Making - Medical Decision Making 30-year-old male patient presents for evaluation of right sided abdominal pain and right flank pain. Physical examination did reveal right CVA tenderness. He is afebrile, vital signs. Labs reviewed and are unremarkable. CT abdomen and pelvis without contrast was obtained and showed no evidence for kidney stones or other abnormalities. I did discuss findings and results with the patient. Be discharged follow up his primary care physician for recheck in 1-2 days. Return parameters were discussed in detail. He verbalizes understanding and agrees with this plan. I attending is Dr. Geiger. - Lab Data Result diagrams: 12/24/20 22:21 12/24/20 22:21 Lab Results 12/24/20 12/24/20 12/24/20 Range/Units 22:21 22:21 22:21 WBC 10.7 H (3.8-10.6) k/uL RBC 5.04 (4.30-5.90) m/uL Hgb 16.8 (13.0-17.5) gm/dL Hct 46.7 (39.0-53.0) % MCV 92.6 (80.0-100.0) fL MCH 33.4 (25.0-35.0) pg MCHC 36.0 (31.0-37.0) g/dL RDW 12.4 (11.5-15.5) % Plt Count 236 (150-450) k/uL MPV 8.6 Neutrophils % 54 % Lymphocytes % 35 % Monocytes % 5 % Eosinophils % 4 % Basophils % 1 % Neutrophils # 5.8 (1.3-7.7) k/uL Lymphocytes # 3.8 (1.0-4.8) k/uL Monocytes # 0.5 (0-1.0) k/uL Eosinophils # 0.4 (0-0.7) k/uL Basophils # 0.1 (0-0.2) k/uL Sodium 138 (137-145) mmol/L Potassium 4.0 (3.5-5.1) mmol/L Chloride 104 (98-107) mmol/L Carbon Dioxide 25 (22-30) mmol/L Anion Gap 9 mmol/L BUN 20 (9-20) mg/dL Creatinine 0.74 (0.66-1.25) mg/dL Est GFR (CKD-EPI)AfAm >90 (>60 ml/min/1.73 sqM) Est GFR (CKD-EPI)NonAf >90 (>60 ml/min/1.73 sqM) Glucose 137 H (74-99) mg/dL Calcium 9.5 (8.4-10.2) mg/dL Total Bilirubin 0.4 (0.2-1.3) mg/dL AST 40 (17-59) U/L ALT 38 (4-49) U/L Alkaline Phosphatase 76 (38-126) U/L Total Protein 7.1 (6.3-8.2) g/dL Albumin 4.4 (3.5-5.0) g/dL Lipase 115 (23-300) U/L Urine Color Yellow Urine Appearance Clear (Clear) Urine pH 5.5 (5.0-8.0) Ur Specific [place] 1.024 (1.001-1.035) Urine Protein Negative (Negative) Urine Glucose (UA) Negative (Negative) Urine Ketones Negative (Negative) Urine Blood Small H (Negative) Urine Nitrite Negative (Negative) Urine Bilirubin Negative (Negative) Urine Urobilinogen <2.0 (<2.0) mg/dL Ur Leukocyte Esterase Negative (Negative) Urine RBC 1 (0-5) /hpf Urine WBC <1 (0-5) /hpf Urine Mucus Rare H (None) /hpf - Radiology Data Radiology results: report reviewed, image reviewed Disposition Clinical Impression: Abdominal pain Disposition: HOME SELF-CARE Condition: Good Instructions (If sedation given, give patient instructions): Abdominal Pain (ED) Additional Instructions: Follow up with your primary care physician for recheck in 1-2 days. Return for any new, worsening, or concerning symptoms. Prescriptions: Ibuprofen [Motrin] 600 mg PO Q8HR PRN #30 tab PRN Reason: Pain Is patient prescribed a controlled substance at d/c from ED?: No Referrals: None,Stated [Primary Care Provider] - 1-2 days Time of Disposition: 23:00
[2020-12-24 23:09] VITALS: BP 137/94; PULSE 100; RESP 18
== END 2020-12-24 23:06 | disposition home or self-care (01) ==
LOC: EC 21:47
DX: R10.9 Unspecified abdominal pain (principal); I10 Essential (primary) hypertension; F17.200 Nicotine dependence, unspecified, uncomplicated
CPT/HCPCS: 36415; 80053; 83690; 85025; 81001; 74176; 96374; 96375 ×2; 96361; 99284; J2405; J1885; J1170

== ENCOUNTER 2021-07-24 06:01 | Emergency (ER) | payer OTHER ==
[2021-07-24 06:09] VITALS: RESP 18; TEMP 98.1
[2021-07-24 06:38] VITALS: BP 134/85; PULSE 81
--- NOTE | 2021-07-24 06:39 | ED ---
General Adult HPI - General Chief complaint: Anxiety Stated complaint: dizziness/anxiety Time Seen by Provider: 07/24/21 06:11 Source: patient Mode of arrival: ambulatory Limitations: no limitations - History of Present Illness Initial comments: 30 year-old male patient presents to the emergency department reporting leg symptoms. States he woke up from sleep around 5:30 this morning and felt somewhat lightheaded. States he felt extreme fatigue like he was being "pulled into sleep". States his mouth was very dry started to feel panicky. He did timo e 75 mg of Benadryl around 0100 prior to going to sleep. States he does take this dose occasionally. He does have history of anxiety, takes zoloft daily for this. He denies any chest pain, shortness of breath, weakness, numbness, or tingling. He denies any fever or chills. Denies nausea or vomiting. Has been eating and drinking well. Does report marijuana use. Denies any street drugs or alcohol. - Related Data Home Medications Medication Instructions Recorded Confirmed Acetaminophen [Tylenol Arthritis] 1,950 mg PO ONCE PRN 12/24/20 12/24/20 HYDROcodone/APAP 7.5-325MG [[place] 2 tab PO ONCE PRN 12/24/20 12/24/20 7.5-325] Hydrangea Root (Unknown Strength) 1 tab PO DAILY PRN 12/24/20 12/24/20 Kidney Cleanse Supplement 1 dose PO DAILY PRN 12/24/20 12/24/20 Previous Rx's Medication Instructions Recorded Ibuprofen [Motrin] 600 mg PO Q8HR PRN #30 tab 12/24/20 Allergies Allergy/AdvReac Type Severity Reaction Status Date / Time banana peppers Allergy Swelling Uncoded 07/24/21 06:09 Review of Systems ROS Statement: Those systems with pertinent positive or pertinent negative responses have been documented in the HPI. ROS Other: All systems not noted in ROS Statement are negative. Past Medical History Past Medical History: Hypertension Additional Past Medical History / Comment(s): kidney stones History of Any Multi-Drug Resistant Organisms: None Reported Past Surgical History: No Surgical Hx Reported Past Psychological History: Anxiety Smoking Status: Current every day smoker Past Alcohol Use History: Occasional Past Drug Use History: Marijuana General Exam Limitations: no limitations General appearance: alert, in no apparent distress, other (This is a well- developed, well-nourished male patient in no acute distress.) ENT exam: Present: normal exam, normal oropharynx, mucous membranes moist Respiratory exam: Present: normal lung sounds bilaterally. Absent: respiratory distress, wheezes, rales, rhonchi, stridor Cardiovascular Exam: Present: regular rate, normal rhythm, normal heart sounds. Absent: systolic murmur, diastolic murmur, rubs, gallop, clicks GI/Abdominal exam: Present: soft, normal bowel sounds. Absent: distended, tenderness, guarding, rebound, rigid Neurological exam: Present: alert, oriented X3, CN II-XII intact Psychiatric exam: Present: normal affect, normal mood Skin exam: Present: warm, dry, intact, normal color. 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 Physical examination is unremarkable. He is neurologically intact with no focal deficits. He did admit to taking 3 Benadryl at 01 100 we At 5:30 with symptoms. He does take Zoloft. I did discuss his dosage of Benadryl was too high, also Benadryl and Zoloft can interact and cause increased fatigue, dizziness, and dry mouth. He is given 1 L of IV fluids here. We discharged follow-up with the primary care physician for recheck in 1-2 days. Return parameters were discussed in detail. He verbalizes understanding and agrees with this plan. My attending is Dr. Willett. Disposition Clinical Impression: Dehydration, Diphenhydramine adverse reaction Disposition: HOME SELF-CARE Condition: Good Instructions (If sedation given, give patient instructions): Dehydration (ED) Additional Instructions: Take diphenhydramine carefully while taking Zoloft. Increase fluids. You should have intake of at least 114oz of water daily. Follow-up with your primary care physician for recheck in 1-2 days. Return for any new, worsening, or concerning symptoms. Is patient prescribed a controlled substance at d/c from ED?: No Referrals: Jayleen Ramos DO [Primary Care Provider] - 1-2 days Time of Disposition: 06:38
[2021-07-24] MEDS ORDERED: SODIUM CHLORIDE 0.9% 1,000 ML IV ONE (06:44)
== END 2021-07-24 08:09 | disposition home or self-care (01) ==
LOC: SUPCPDRO 06:01 → EC 06:01
DX: E86.0 Dehydration (principal); T45.0X5A Adverse effect of antiallergic and antiemetic drugs, initial encounter; I10 Essential (primary) hypertension; F41.9 Anxiety disorder, unspecified; F17.200 Nicotine dependence, unspecified, uncomplicated; F12.90 Cannabis use, unspecified, uncomplicated; Z87.442 Personal history of urinary calculi
CPT/HCPCS: 96360; 99283

== ENCOUNTER 2022-02-11 07:04 | Emergency (ER) | payer OTHER ==
[2022-02-11 07:28] VITALS: BP 135/85; PULSE 92; RESP 20; TEMP 98.5
--- NOTE | 2022-02-11 09:14 | ED ---
Skin/Abscess/FB HPI - General Chief complaint: Skin/Abscess/Foreign Body Stated complaint: Spots on hands Time Seen by Provider: 02/11/22 08:46 Source: patient, RN notes reviewed Mode of arrival: ambulatory Limitations: no limitations - History of Present Illness Initial comments: 31-year-old male presents emergency from chief complaint sore throat rash. Patient states that he started not feeling well few days ago. Fever bodyaches but has nausea vomiting then developed sore throat, rash. Patient states he has a rash on his hand and noted on his feet. Patient states that he is unsure what this is what was concerned. Patient was seen at [facility] is advised to be seen at another facility. Patient denies any sick contacts. Patient states his sore throat is improving he denies any stiff and cough reports symptoms denies any history of STDs. Denies anyMSM. - Related Data Home Medications Medication Instructions Recorded Confirmed Acetaminophen [Tylenol Arthritis] 1,950 mg PO ONCE PRN 12/24/20 12/24/20 HYDROcodone/APAP 7.5-325MG [[place] 2 tab PO ONCE PRN 12/24/20 12/24/20 7.5-325] Hydrangea Root (Unknown Strength) 1 tab PO DAILY PRN 12/24/20 12/24/20 Kidney Cleanse Supplement 1 dose PO DAILY PRN 12/24/20 12/24/20 Previous Rx's Medication Instructions Recorded Ibuprofen [Motrin] 600 mg PO Q8HR PRN #30 tab 12/24/20 Allergies Allergy/AdvReac Type Severity Reaction Status Date / Time banana peppers Allergy Swelling Uncoded 02/11/22 07:28 Review of Systems ROS Statement: Those systems with pertinent positive or pertinent negative responses have been documented in the HPI. ROS Other: All systems not noted in ROS Statement are negative. Past Medical History Past Medical History: Hypertension Additional Past Medical History / Comment(s): kidney stones History of Any Multi-Drug Resistant Organisms: None Reported Past Surgical History: No Surgical Hx Reported Past Psychological History: Anxiety Smoking Status: Current every day smoker Past Alcohol Use History: Occasional Past Drug Use History: Marijuana General Exam Limitations: no limitations General appearance: alert, in no apparent distress Head exam: Present: atraumatic, normocephalic, normal inspection Eye exam: Present: normal appearance, PERRL, EOMI. Absent: scleral icterus, conjunctival injection, periorbital swelling ENT exam: Present: mucous membranes moist. Absent: normal exam, normal oropharynx (On the palate there is erythematous sores noted) Neck exam: Present: normal inspection, full ROM. Absent: tenderness, meningismus, lymphadenopathy Respiratory exam: Present: normal lung sounds bilaterally. Absent: respiratory distress, wheezes, rales, rhonchi, stridor Cardiovascular Exam: Present: regular rate, normal rhythm, normal heart sounds. Absent: systolic murmur, diastolic murmur, rubs, gallop, clicks GI/Abdominal exam: Present: soft, normal bowel sounds. Absent: distended, tenderness, guarding, rebound, rigid Skin exam: Present: warm, dry, intact, normal color, rash (Bilateral hands, noted on the feet there are erythematous painful sores) Course Vital Signs 02/11/22 07:21 Temperature 98.5 F Pulse Rate 92 Respiratory 20 Rate Blood Pressure 135/85 O2 Sat by Pulse 94 L Oximetry Medical Decision Making - Medical Decision Making 31-year-old presented for rash. Patient symptoms more consistent with ypto-[id number]-mouth disease. Patient has sores on his palate, hands, feet noted patient did have prodromal phase. Patient we discharged stable condition return parameters discussed. Disposition Clinical Impression: Hand, foot and mouth disease Disposition: HOME SELF-CARE Condition: Stable Instructions (If sedation given, give patient instructions): Hand, Foot, and Mouth Disease (ED) Additional Instructions: Please return to the Emergency Department if symptoms worsen or any other concerns. Is patient prescribed a controlled substance at d/c from ED?: No Referrals: Jayleen Ramos DO [Primary Care Provider] - 1-2 days Time of Disposition: 09:14
== END 2022-02-11 09:39 | disposition home or self-care (01) ==
LOC: EC 07:04
DX: B08.4 Enteroviral vesicular stomatitis with exanthem (principal); I10 Essential (primary) hypertension; F17.209 Nicotine dependence, unspecified, with unspecified nicotine-induced disorders; Z91.018 Allergy to other foods
CPT/HCPCS: 99283